=== PATIENT | female | born 1945 | race Caucasian/White ===

== ENCOUNTER → 2017-05-31 | Outpatient (CLI) | payer OTHER ==
[~2017-05-31] MED LIST: ALLEGRA-D PO; ASPI-1197 PO; ATOR40TA71 PO; CHOL200074 PO; LEVO137T2 PO; LEVO137T24 PO; LEVO150T11 PO; METO50TA18 PO; METOPROLOL; OLME1TAB11 PO; PANT40TA25 PO
== END | disposition home or self-care (01) ==
LOC: RAH 13:23
DX: N63.20 Unspecified lump in the left breast, unspecified quadrant (principal); Z98.82 Breast implant status
CPT/HCPCS: 76641

== ENCOUNTER 2017-07-24 03:02 | Emergency (ER) | payer OTHER ==
[~2017-07-24 03:02] MED LIST changes: -ASPI-1197 PO; -ATOR40TA71 PO; -LEVO137T2 PO; -LEVO150T11 PO; -METO50TA18 PO; -PANT40TA25 PO
[2017-07-24 03:22] LABS: BASOPHILS % (AUTO) 0.6 % (0.0-5.0); EOSINOPHILS % (AUTO) 2.2 % (0.0-8.0); HEMATOCRIT 42.9 % (36-48); LYMPHOCYTES % (AUTO) 49.8 % (21.0-51.0); MEAN CORPUSCULAR HEMOGLOBIN 29.5 pg (27.0-33.0); MEAN CORPUSCULAR HGB CONC 34.3 g/dL (32.0-36.0); MEAN CORPUSCULAR VOLUME 85.9 fL (79-99); MONOCYTES % (AUTO) 8.2 % (3.0-13.0); NEUTROPHILS % (AUTO) 39.2 % (40.0-77.0); NUCLEATED RED BLOOD CELLS 0.1 % (0.0-0.19); PLATELET COUNT (AUTO) 214 K/uL (130-400); RED BLOOD CELL COUNT(AUTO) 4.99 MIL/uL (4.00-5.50); RED CELL DISTRIBUTION WIDTH 12.4 % (11.0-15.5); WHITE BLOOD COUNT (AUTO) 4.6 K/uL (4.8-10.8)
[2017-07-24 03:32] LABS: CREATININE 0.7 mg/dL (0.5-1.5); POTASSIUM 3.3 mmol/L (3.5-5.1)
[2017-07-24 03:39] LABS: INR 0.92 (0.85-1.15); PARTIAL THROMBOPLASTIN TIME 27.3 SEC (26.3-35.5); PROTHROMBIN TIME 9.7 SEC (9.6-11.6)
[2017-07-24 03:51] LABS: ALBUMIN 3.7 g/dL (3.5-5.0); BILIRUBIN,TOTAL 0.2 mg/dL (0.2-1.0); CREATINE KINASE MB 1.8 ng/mL (0.5-3.6); TOTAL PROTEIN, SERUM 7.5 g/dL (6.0-8.3)
== END 2017-07-24 06:46 | disposition home or self-care (01) ==
LOC: EDH 03:02
DX: R07.89 Other chest pain (principal); R00.2 Palpitations; E03.9 Hypothyroidism, unspecified; I10 Essential (primary) hypertension; I48.91 Unspecified atrial fibrillation; Z90.10 Acquired absence of unspecified breast and nipple; Z79.899 Other long term (current) drug therapy
CPT/HCPCS: 36415; 71045; 80053; 82550; 82553; 83874; 84443; 84484; 85025; 85378; 85610; 85730; 93005; 94761

== ENCOUNTER → 2017-08-15 | Outpatient (CLI) | payer OTHER ==
[~2017-08-15] MED LIST changes: +ASPI-1197 PO; +ATOR40TA71 PO; +LEVO137T2 PO; +LEVO150T11 PO; +METO50TA18 PO; +PANT40TA25 PO; +REGADENOSON 0.4 MG/5 ML PF SYG IVP SCH
== END | disposition home or self-care (01) ==
LOC: SHCH 10:39
PROVIDERS: ATTEND Internal Medicine Cardiovascular Disease
DX: I25.10 Atherosclerotic heart disease of native coronary artery without angina pectoris (principal); R06.02 Shortness of breath
CPT/HCPCS: 78452; 93017; 96374; A9500 ×2; J2785

== ENCOUNTER → 2017-08-23 | Outpatient (CLI) | payer OTHER ==
[~2017-08-23] MED LIST changes: -REGADENOSON 0.4 MG/5 ML PF SYG IVP SCH
== END | disposition home or self-care (01) ==
LOC: SHCH 14:55
PROVIDERS: ATTEND Internal Medicine Cardiovascular Disease
DX: I35.0 Nonrheumatic aortic (valve) stenosis (principal); I51.7 Cardiomegaly
CPT/HCPCS: 93306

== ENCOUNTER 2017-09-03 04:07 | Inpatient (IN) | payer OTHER ==
[~2017-09-03] VITALS: Ht 160 cm; Wt 86.9 kg
[~2017-09-03 04:07] MED LIST changes: -ASPI-1197 PO; -ATOR40TA71 PO; -LEVO137T2 PO; -LEVO150T11 PO; -METO50TA18 PO; -PANT40TA25 PO
[2017-09-03 04:49] LABS: CREATININE 0.5 mg/dL (0.5-1.5); POTASSIUM 3.1 mmol/L (3.5-5.1)
[2017-09-03 04:56] LABS: ALBUMIN 3.3 g/dL (3.5-5.0); BILIRUBIN,TOTAL 0.3 mg/dL (0.2-1.0); TOTAL PROTEIN, SERUM 6.6 g/dL (6.0-8.3)
[2017-09-03 04:58] LABS: BASOPHILS % (AUTO) 1.1 % (0.0-5.0); EOSINOPHILS % (AUTO) 2.4 % (0.0-8.0); HEMATOCRIT 37.2 % (36-48); LYMPHOCYTES % (AUTO) 38.9 % (21.0-51.0); MEAN CORPUSCULAR HEMOGLOBIN 29.8 pg (27.0-33.0); MEAN CORPUSCULAR HGB CONC 34.8 g/dL (32.0-36.0); MEAN CORPUSCULAR VOLUME 85.6 fL (79-99); MONOCYTES % (AUTO) 9.8 % (3.0-13.0); NEUTROPHILS % (AUTO) 47.8 % (40.0-77.0); NUCLEATED RED BLOOD CELLS 0.1 % (0.0-0.19); PLATELET COUNT (AUTO) 213 K/uL (130-400); RED BLOOD CELL COUNT(AUTO) 4.35 MIL/uL (4.00-5.50); RED CELL DISTRIBUTION WIDTH 12.6 % (11.0-15.5); WHITE BLOOD COUNT (AUTO) 4.3 K/uL (4.8-10.8)
[2017-09-03 05:13] LABS: INR 0.95 (0.85-1.15); PARTIAL THROMBOPLASTIN TIME 27.2 SEC (26.3-35.5)
[2017-09-03] MEDS ORDERED: ASPIRIN 81MG TAB.CHEW ONE (06:24)
[2017-09-03] MEDS ORDERED: SODIUM CHLORIDE 0.9% 10 ML VIAL IVP PRN (07:00)
[2017-09-03] MEDS ORDERED: NITROGLYCERIN 1GM/1 INCH PACKET TD SCH (07:00)
[2017-09-03] MEDS ORDERED: METO50TA18 PO (07:41)
[2017-09-03 07:45] VITALS: BP 134/57
[2017-09-03] MEDS ORDERED: ASPIRIN 325MG EC TAB 325 MG TABLET.DR PO SCH (09:00)
[2017-09-03] MEDS ORDERED: ATOR40TA71 PO (10:05)
[2017-09-03] MEDS ORDERED: LEVO137T2 PO (10:05)
[2017-09-03] MEDS ORDERED: ASPI-1197 PO (10:05)
[2017-09-03] MEDS ORDERED: LEVO150T11 PO (10:05)
[2017-09-03] MEDS ORDERED: LEVOTHYROXINE SODIUM 137 MCG PO SCH (10:15)
[2017-09-03 10:59] LABS: CREATINE KINASE MB 2.3 ng/mL (0.5-3.6); CREATINE KINASE, TOTAL 70 U/L (21-232); MYOGLOBIN 40 ng/mL (10-92); TROPONIN I < 0.04 ng/mL (0.00-0.06)
[2017-09-03 11:10] VITALS: BP 125/55
[2017-09-03] MEDS: NITROGLYCERIN 1GM/1 INCH PACKET TD SCH ×2 (11:19→18:25)
[2017-09-03 16:26] VITALS: BP 127/61
[2017-09-03 16:36] LABS: CREATINE KINASE MB 1.7 ng/mL (0.5-3.6); CREATINE KINASE, TOTAL 68 U/L (21-232); MYOGLOBIN 31 ng/mL (10-92); TROPONIN I < 0.04 ng/mL (0.00-0.06)
[2017-09-03 19:55] VITALS: BP 119/49
[2017-09-03] MEDS: ATORVASTATIN CALCIUM 40 MG TABLET PO SCH ×2 (20:16→20:20)
[2017-09-04] VITALS (11 sets, daily range): BP systolic 119–143; BP diastolic 57–75
[2017-09-04] MEDS: NITROGLYCERIN 1GM/1 INCH PACKET TD SCH ×3 (00:02→12:24)
[2017-09-04] MEDS ORDERED: LEVOTHYROXINE 25 MCG TABLET PO SCH (06:30)
[2017-09-04] MEDS ORDERED: LEVOTHYROXINE 150 MCG TABLET PO SCH (06:30)
[2017-09-04] MEDS ORDERED: LEVOTHYROXINE 112 MCG TABLET PO SCH (06:30)
[2017-09-04] MEDS ORDERED: LOSARTAN/HYDROCHLOROTHIAZIDE 50-12.5MG TABLET PO SCH (09:00)
[2017-09-04] MEDS ORDERED: METOPROLOL TARTRATE 50 MG TAB PO SCH (09:00)
[2017-09-04] MEDS ORDERED: PSEUDOEPHEDRINE PO SCH (09:00)
[2017-09-04] MEDS ORDERED: CHOLECALCIFEROL 2000 UNIT PO SCH (09:00)
[2017-09-04] MEDS ORDERED: FEXOFENADINE PO SCH (09:00)
[2017-09-04] MEDS ORDERED: NITROGLYCERIN 5 MG/ML 10 ML VIAL IV ONE (12:32)
[2017-09-04] MEDS ORDERED: IOPAMIDOL-370 100 ML VIAL IV ONE ×2 (12:32)
[2017-09-04] MEDS ORDERED: ISOVUE-370 50ML VIAL IV ONE (12:32)
[2017-09-04] MEDS ORDERED: LIDOCAINE HCL 2% 20ML ONE (12:32)
[2017-09-04] MEDS ORDERED: MIDAZOLAM HCL 1 MG/ML 2ML VIAL ONE (13:10)
[2017-09-04] MEDS ORDERED: MORPHINE SULFATE 4 MG/1ML SYG ONE (13:11)
[2017-09-04] MEDS ORDERED: SODIUM CHLORIDE 0.9% 1000ML 1,000 ML IV SCH (13:28)
[2017-09-04] MEDS ORDERED: PANT40TA25 PO (13:32)
[2017-09-09] MEDS ORDERED: LEVOTHYROXINE 150 MCG TABLET PO SCH (06:30)
== END 2017-09-04 18:45 | disposition home or self-care (01) | DRG 287 ==
LOC: EDH 04:07 → EDHIP 06:26 → 2AH 07:40
PROVIDERS: ADMIT Internal Medicine Hematology & Oncology; ATTEND Internal Medicine Hematology & Oncology
PROC: 4A023N7 Measurement of Cardiac Sampling and Pressure, Left Heart, Percutaneous Approach (ICD-10-PCS; principal; 2017-09-04)
PROC: B2111ZZ Fluoroscopy of Multiple Coronary Arteries using Low Osmolar Contrast (ICD-10-PCS; 2017-09-04)
PROC: B2151ZZ Fluoroscopy of Left Heart using Low Osmolar Contrast (ICD-10-PCS; 2017-09-04)
DX: I25.110 Atherosclerotic heart disease of native coronary artery with unstable angina pectoris (principal); I35.0 Nonrheumatic aortic (valve) stenosis; I10 Essential (primary) hypertension; E78.5 Hyperlipidemia, unspecified; I48.0 Paroxysmal atrial fibrillation; F17.210 Nicotine dependence, cigarettes, uncomplicated; E89.0 Postprocedural hypothyroidism; I25.2 Old myocardial infarction; Z79.82 Long term (current) use of aspirin; Z79.899 Other long term (current) drug therapy; Z85.3 Personal history of malignant neoplasm of breast; Z90.13 Acquired absence of bilateral breasts and nipples; Z90.710 Acquired absence of both cervix and uterus
CPT/HCPCS: 36415; 71045; 80053; 82550; 82553; 83690; 83874; 84132; 84484; 85025; 85610; 85730; 93005; 93458; 99156; 99157; C1760; C1894; J1644; J2250; J2270; J3490; Q9967

== ENCOUNTER 2019-01-11 13:06 | Observation (INO) | payer OTHER ==
[~2019-01-11] VITALS: Ht 160 cm; Wt 84.0 kg
[~2019-01-11 13:06] MED LIST changes: +ATOR40TA71 PO; +LEVO137T2 PO; -LEVO137T24 PO; +LEVO150T11 PO; +METO50TA18 PO; -METOPROLOL; +PANT40TA25 PO
[2019-01-11] MEDS ORDERED: SODIUM CHLORIDE 0.9% 10 ML VIAL IVP PRN (13:30)
[2019-01-11 14:06] LABS: APPEARANCE,URINE Cloudy (CLEAR); BILIRUBIN,URINE Negative (NEGATIVE); COLOR,URINE Yellow (YELLOW); GLUCOSE, URINE (UA) Negative (NEGATIVE); KETONES,URINE Negative (NEGATIVE); LEUKOCYTE ESTERASE ,URINE Trace (NEGATIVE); NITRATE,URINE Negative (NEGATIVE); OCCULT BLOOD,URINE Negative (NEGATIVE); PROTEIN,URINE Negative (NEGATIVE); UROBILINOGEN,URINE 0.2 mg/dL (0.2-1.0)
[2019-01-11 14:20] LABS: BACTERIA,URINE Moderate /HPF (None Seen); MUCUS,URINE Moderate LPF (None Seen)
[2019-01-11 14:44] LABS: BASOPHILS % (AUTO) 0.7 % (0.0-5.0); HEMATOCRIT 39.6 % (36-48); LYMPHOCYTES % (AUTO) 34.6 % (21.0-51.0); MEAN CORPUSCULAR HEMOGLOBIN 29.9 pg (27.0-33.0); MEAN CORPUSCULAR HGB CONC 34.2 g/dL (32.0-36.0); MEAN CORPUSCULAR VOLUME 87.5 fL (79-99); MONOCYTES % (AUTO) 8.1 % (3.0-13.0); NEUTROPHILS % (AUTO) 55.6 % (40.0-77.0); NUCLEATED RED BLOOD CELLS 0.1 % (0.0-0.19); PLATELET COUNT (AUTO) 206 K/uL (130-400); RED BLOOD CELL COUNT(AUTO) 4.52 MIL/uL (4.00-5.50); WHITE BLOOD COUNT (AUTO) 4.9 K/uL (4.8-10.8)
[2019-01-11 14:59] LABS: CREATININE 0.8 mg/dL (0.5-1.5); POTASSIUM 3.9 mmol/L (3.5-5.1)
[2019-01-11 15:01] LABS: INR 1.29 (0.85-1.15); PROTHROMBIN TIME 13.4 SEC (9.6-11.6)
[2019-01-11 15:04] LABS: ALBUMIN 3.7 g/dL (3.5-5.0); BILIRUBIN,TOTAL 0.5 mg/dL (0.2-1.0); TOTAL PROTEIN, SERUM 7.1 g/dL (6.0-8.3)
[2019-01-11] MEDS ORDERED: PANTOPRAZOLE SODIUM 40 MG TABLET.DR PO ONE (16:44)
[2019-01-11 17:30] VITALS: BP_SYST 132; BP_SYST 32; BP_DIAS 50
[2019-01-11] MEDS ORDERED: RIVA20TA PO (17:52)
[2019-01-11] MEDS ORDERED: CALC-960 PO (17:52)
[2019-01-11] MEDS ORDERED: METO50TA9 PO (17:52)
[2019-01-11] MEDS ORDERED: LEVO150T11 PO (17:52)
[2019-01-11 19:27] VITALS: BP 131/68
[2019-01-11 23:53] VITALS: BP 138/59
[2019-01-12] VITALS (10 sets, daily range): BP systolic 136–159; BP diastolic 61–90
--- NOTE | 2019-01-12 00:30 | NUR ---
HOSPITALIST PAGED PAGED HOSPITALIST SEWING MACHINE OPERATOR COURTESY SINCE PRIMARY HAS NOT SEEN PATIENT SINCE SHE ARRIVED AND PATIENT HAS NO ORDERS
--- NOTE | 2019-01-12 01:30 | NUR ---
HOSPITALIST REPAGED HOSPITALIST HASMUKH MCBRIDE REPAGED AWAITING CALL BACK
--- NOTE | 2019-01-12 03:30 | NUR ---
NOTIFIED HOSPITALIST NOTIFIED HOSPITALIST PRINTED CIRCUIT LAYOUT TAPER IN PERSON THAT THE PATIENT HAD NOT BEEN SEEN BY PRIMARY TEAM SINCE HER ARRIVAL AT 5PM AND THAT SHE DID NOT HAVE ANY ORDERS . SHE VERBALIZED UNDERSTANDING AND STATED SHE WOULD TAKE A LOOK
--- NOTE | 2019-01-12 07:35 | NUR ---
ASSESSMENT ENCOUNTERED PT A&OX3, CALM COOPERATIVE AND DOES NOT APPEAR TO BE IN ANY DISTRESS NOR ANY NEURO DEFICITS PRESENT. PT DENIES PAIN, SOB, NAUSEA. PT IS AMBULATORY, GAIT STEADY AND STRONG WITH STAND BY ASSIST. TELEMONITOR DISPLAYS NSR. PT IS NPO FOR PENDING PACEMAKER PLACEMENT. CALL LIGHT WITHIN REACH, FAMILY AT BEDSIDE.
[2019-01-12] MEDS ORDERED: POTASSIUM CHLORIDE 10% ELIXIR 20 MEQ/15 ML UDCUP PO PRN (08:00)
[2019-01-12] MEDS ORDERED: POTASSIUM CHLORIDE 20 MEQ ERTAB PO PRN (08:00)
[2019-01-12] MEDS ORDERED: LIDOCAINE HCL-MPF 1% 2ML VIAL IV PRN (08:00)
[2019-01-12] MEDS ORDERED: POTASSIUM CHLORIDE 20MEQ/100ML 100 ML IV PRN (08:00)
[2019-01-12] MEDS ORDERED: CLINDAMYCIN 600 MG/D5% WATER 50 ML IV PRN (09:00)
[2019-01-12] MEDS ORDERED: LOSARTAN 100 MG TABLET PO SCH (09:00)
[2019-01-12] MEDS ORDERED: HYDROCHLOROTHIAZIDE 25 MG TABLET PO SCH (09:00)
[2019-01-12] MEDS ORDERED: CLINDAMYCIN 600 MG/D5% WATER 100 ML IV ONE (13:13)
[2019-01-12] MEDS ORDERED: FENTANYL CITRATE PF 50 MCG/1 ML 2ML VIAL ONE ×2 (13:13→15:08)
[2019-01-12] MEDS ORDERED: LIDOCAINE HCL 1% MDV 50ML VIAL ONE (13:13)
[2019-01-12] MEDS ORDERED: MIDAZOLAM HCL 1 MG/ML 2ML VIAL ONE ×2 (13:13→15:08)
[2019-01-12] MEDS ORDERED: BUPIVACAINE/PF 0.25% 30ML VIAL IJ ONE (13:13)
--- NOTE | 2019-01-12 16:10 | NUR ---
POST PROCEDURE RECEIVED PT FROM COMMUNITY DIRECTOR, IN SEMI MURRAY'S POSITION, A&OX3, CALM COOPERATIVE AND DOES NOT APPEAR TO BE IN ANY DISTRESS NOR ANY NEURO DEFICITS PRESENT. PT DENIES SOB, NAUSEA. LEFT SHOULDER DRESSING DRY, INTACT AND SECURE WITH ARM SLING. PULSES AND SEAM RUBBER STRENGTH STRONG TO ALL EXTREMITIES. PT ON BEDREST, CALL LIGHT WITHIN REACH, FAMILY AT BEDSIDE.
[2019-01-12] MEDS ORDERED: ACETAMINOPHEN 325 MG TAB ONE (16:24)
[2019-01-12] MEDS ORDERED: ACETAMINOPHEN 325 MG TAB PO PRN ×2 (16:30)
--- NOTE | 2019-01-12 19:58 | NUR ---
DISMISSED TO HOME VIA WHEELCHAIR ACCOMPANIED BY . DISCHARGE INSTRUCTIONS GIVEN TO PATIENT AND SPOUSE BY BO HAIDER. IV'S DC'D AND TELEY PACK REMOVED.
[2019-01-12] MEDS ORDERED: ATORVASTATIN CALCIUM 40 MG TABLET PO SCH (21:00)
[2019-01-13] MEDS ORDERED: LEVOTHYROXINE 150 MCG TABLET PO SCH (06:30)
[2019-01-13] MEDS ORDERED: PANTOPRAZOLE SODIUM 40 MG TABLET.DR PO SCH (07:30)
== END 2019-01-12 20:24 | disposition home or self-care (01) ==
LOC: EDH 13:06 → INTOOBSV 13:07 → EDHIP 13:07 → 2AH 17:20
PROVIDERS: ADMIT Internal Medicine; ATTEND Internal Medicine
DX: I46.9 Cardiac arrest, cause unspecified (principal); I48.0 Paroxysmal atrial fibrillation; D68.59 Other primary thrombophilia; I51.7 Cardiomegaly; E89.0 Postprocedural hypothyroidism; K22.70 Barrett's esophagus without dysplasia; R00.1 Bradycardia, unspecified; R94.31 Abnormal electrocardiogram [ECG] [EKG]; Z85.3 Personal history of malignant neoplasm of breast; Z90.13 Acquired absence of bilateral breasts and nipples; Z90.710 Acquired absence of both cervix and uterus; Z98.1 Arthrodesis status; Z95.818 Presence of other cardiac implants and grafts; Z79.01 Long term (current) use of anticoagulants; Z79.899 Other long term (current) drug therapy; Z88.8 Allergy status to other drugs, medicaments and biological substances
CPT/HCPCS: 33208; 36415; 71045; 71046; 80053; 81001; 85025; 85610; 85730; 93005; 99284; C1785; C1898 ×2; G0378 ×32; J2250 ×2; J3010 ×2; J3490 ×4; 99156; 99157

== ENCOUNTER 2019-01-13 14:56 | Emergency (ER) | payer OTHER ==
[~2019-01-13 14:56] MED LIST changes: +CALC-960 PO; -LEVO137T2 PO; -METO50TA18 PO; +METO50TA9 PO; +RIVA20TA PO
[2019-01-13] MEDS ORDERED: NEOMY SULF/BACITRA/POLYMYXIN B 1 EACH PACKET TP ONE (15:55)
== END 2019-01-13 16:42 | disposition home or self-care (01) ==
LOC: EDH 14:56
DX: I97.638 Postprocedural hematoma of a circulatory system organ or structure following other circulatory system procedure (principal); I48.91 Unspecified atrial fibrillation; E78.5 Hyperlipidemia, unspecified; I10 Essential (primary) hypertension; E07.9 Disorder of thyroid, unspecified; Z95.0 Presence of cardiac pacemaker; Z72.0 Tobacco use; Y83.8 Other surgical procedures as the cause of abnormal reaction of the patient, or of later complication, without mention of misadventure at the time of the procedure; Y82.8 Other medical devices associated with adverse incidents; Y92.89 Other specified places as the place of occurrence of the external cause
CPT/HCPCS: 99281

== ENCOUNTER → 2024-04-16 | Outpatient (CLI) | payer MEDICARE ==
[~2024-04-16] MED LIST changes: +OLME-40 PO; -OLME1TAB11 PO; -PANT40TA25 PO; +PANT40TA54 PO
== END | disposition home or self-care (01) ==
LOC: SHCH 07:44
PROVIDERS: ATTEND Student in an Organized Health Care Education/Training Program
DX: I71.40 Abdominal aortic aneurysm, without rupture, unspecified (principal); I73.9 Peripheral vascular disease, unspecified
CPT/HCPCS: 93925; 93978

== ENCOUNTER → 2024-04-26 | Outpatient (CLI) | payer MEDICARE ==
[2024-04-26 12:42] LABS: CHOLESTEROL 242 mg/dL (<200); HDL CHOLESTEROL 107 mg/dL (35-85); LDL DIRECT 120 mg/dL (0-99); TRIGLYCERIDES 99 mg/dL (30-200)
== END | disposition home or self-care (01) ==
LOC: LAB 08:10
PROVIDERS: ATTEND Student in an Organized Health Care Education/Training Program
DX: Z13.6 Encounter for screening for cardiovascular disorders (principal); I10 Essential (primary) hypertension; I48.0 Paroxysmal atrial fibrillation; D68.59 Other primary thrombophilia; E78.2 Mixed hyperlipidemia; M79.605 Pain in left leg; R00.2 Palpitations; Z95.0 Presence of cardiac pacemaker
CPT/HCPCS: 36415; 80061

== ENCOUNTER 2024-06-07 15:17 | Emergency (ER) | payer MEDICARE ==
[~2024-06-07] VITALS: Ht 162.6 cm; Wt 90.7 kg
[2024-06-07 15:23] VITALS: BP 143/66; PULSE 65; RESP 16; TEMP 98.1
--- NOTE | 2024-06-07 16:02 | HMCIMG ---
Exam Type: CT cervical spine without contrast Clinical Information: fall Comparison: None Technique: Spiral axial images were performed from the base of the skull down to the thoracic vertebral bodies. Both sagittal and coronal reconstructions were performed. CT Dose Index (CTDI): 12.85 mGy Dose Length Product (DLP): 282.6 total Findings: There is straightening of the spine consistent with spasm. There are no fractures. No facet hypertrophy. The prevertebral soft tissues are normal. Status post anterior fusion and disc fusion at C6-7. IMPRESSION: Cervical spasm. No fractures. This study was performed using dose reduction techniques to include automated exposure control and/or adjustment of the mA and/or kV according to patient size.
--- NOTE | 2024-06-07 16:04 | HMCIMG ---
CT MAXILLOFACIAL W/O CONTRAST Indication: fall Technique: Multiple thin section axial images were performed through the face and paranasal sinuses. Coronal reconstructions were performed in soft tissue and bone windows, as well as sagittal reconstructions. CT Dose Index (CTDI): 22.11 mGy Dose Length Product (DLP): 450.8 total mGy Findings: Paranasal sinuses are unremarkable. Comminuted nasal bridge and nasal bone fractures seen. Visualized soft tissues are unremarkable. Visualized intracranial contents are unremarkable. Impression: Nasal fractures. This study was performed using dose reduction techniques to include automated exposure control and/or adjustment of the mA and/or kV according to patient size.
--- NOTE | 2024-06-07 16:09 | HMCIMG ---
Exam Type: CT HEAD/BRAIN W/O CONTRAST Clinical Information: fall Comparison: None CT Dose Index (CTDI): 57.33 mGy Dose Length Product (DLP): 956.79 total mGy-cm Findings: The examination shows atrophy. There is low attenuation throughout the periventricular white matter locations, consistent with chronic small vessel ischemic changes. No acute intra- or extra-axial fluid collections are seen. There is no evidence of acute or chronic hemorrhage. There is no mass effect or shift of midline structures. There are no areas to suggest acute infarct. The skull windows show no significant abnormalities. IMPRESSION: 1. ATROPHY AND CHRONIC SMALL VESSEL ISCHEMIC CHANGES. This study was performed using dose reduction techniques to include automated exposure control and/or adjustment of the mA and/or kV according to patient size.
--- NOTE | 2024-06-07 16:11 | NUR ---
C COLLAR REMOVED PER ORDER
[2024-06-07] MEDS: teTANUS/diphthERIA TOXOID [ADULT] 0.5 ML VIAL IM ONE ×2 (16:18→16:19)
--- NOTE | 2024-06-07 16:43 | ERN ---
General Chief Complaint: Head Injury Stated Complaint: INJURY DUE TO FALL Time Seen by MD: 15:21 Time Seen by Midlevel: 15:21 Source: patient History of Present Illness Initial Comments PATIENT IS A 78-YEAR-OLD FEMALE PRESENTING TO THE EMERGENCY DEPARTMENT FOR EVALUATION OF A HEAD INJURY. THE PATIENT REPORTS SUSTAINING A MECHANICAL GROUND LEVEL FALL TODAY. SHE TRIPPED AND FELL FORWARD HITTING HER FACE.. SHE REPORTS POSITIVE LOSS OF CONSCIOUSNESS. SHE IS CURRENTLY TAKING XARELTO. SHE REPORTS TAKING 800 MG OF MOTRIN 2 HOURS PRIOR TO ARRIVAL. Allergies: Coded Allergies: No Known Drug Allergies (Verified Allergy, Unknown, 08/29/16) Home Meds Active Scripts Pantoprazole Sodium (Pantoprazole Sodium) 40 Mg Tablet.dr, 40 MG PO ACBKFST, #30 TAB Prov:BUTCH CARROLL MD 09/04/17 Reported Medications Calcium Carb & Cit/Vitamin D3 (Citracal + D ER Tablet) 1 Each Tablet.er, 1 EACH PO DAILY, TAB 01/11/19 Rivaroxaban (Xarelto) 20 Mg Tablet, 20 MG PO DAILY, TAB 01/11/19 Metoprolol Succinate (Toprol Xl) 50 Mg Tab.er.24h, 50 MG PO DAILY, TAB 01/11/19 Levothyroxine Sodium (Levothyroxine Sodium) 150 Mcg Tablet, 150 MCG PO 0630, TAB 01/11/19 Atorvastatin Calcium (Atorvastatin Calcium) 40 Mg Tablet, 40 MG PO HS, TAB 09/03/17 [Irene-D] No Conflict Check, 180-240 MG PO DAILY 08/29/16 Olmesartan/Hydrochlorothiazide (Benicar Hct 40-25 mg Tablet) 1 Each Tablet, 1 EACH PO DAILY, TAB 08/29/16 Cholecalciferol (Vitamin D3) (Vitamin D-3) 2,000 Unit Capsule, 2000 UNIT PO DAILY, CAP 08/29/16 Past Medical History Past Medical History: Heart Disease, Hypertension Medical History Other: CHRONIC KNEE PAIN Past Surgical History: Pacer/AICD ROS Dictation CONSTITUTIONAL: Negative except for HPI HEAD/FACE: Negative except for HPI EENT: Negative except for HPI RESPIRATORY: Negative except for HPI GASTROINTESTINAL/ABDOMINAL: Negative except for HPI GENITOURINARY: Negative except for HPI MUSCULOSKELETAL: Negative except for HPI INTEGUMENTARY: Negative except for HPI NEUROLOGICAL/PSYCH: Negative except for HPI HEMATOLOGIC/LYMPHATIC: Negative except for HPI All Systems Negative, Except as noted above. 13 point review of systems assessed and all negative except for above. Physical Exam Physical Exam Dictation Vital Signs reviewed General Appearance: Alert, oriented x 3, no acute distress, well developed, nourished. Head and Face: BRUISING AND SWELLING TO THE NASAL BRIDGE, NO SEPTAL HEMATOMA, NO NASAL DEVIATION Eyes: PERRL, pink conjunctivas, eyelid no trauma, anterior chamber with arcus senilis. Ears: Pinnas intact and no signs of trauma or erythema ear canals clear and no discharge TM no erythema Nose: No discharge, no bleeding. Oropharynx: Mouth normal, tongue pink, pharynx clear,no erythema, tonsils no exudates, no abscesses noted, mucous membrane moist Neck: Supple, non-tender, no thyromegaly, no masses, no JVD, no bruits Breast:Deferred Chest:No tenderness, no crepitus, no paradoxical movement, no retractions Lungs:Clear, well-ventilated, symmetric, no rales, no wheezing, no rhonchi, no stridor, good breath sounds bilaterally Heart: Regular rate, regular rhythm, no murmur, no gallops Vascular: no peripheral edema, Abdomen: Soft, positive bowel sounds, nondistended, no guarding, nontender, no rebound, no masses no hepatomegaly, no splenomegaly, no Ortega's sign, no hernias. Rectal: Deferred Genital: Deferred Neurological: Normal speech, motor function intact, sensory function intact Musculoskeletal: Neck nontender, full range of motion, back nontender, full range of motion, Extremities: nontender, full range of motion Skin: Color pink, dry, no turgor, no rash, no lacerations, no abrasions, no contusions. Lymphatic: Deferred MDM MDM: 78-YEAR-OLD FEMALE ON XARELTO PRESENTING TO THE ER FOLLOWING A MECHANICAL GROUND LEVEL FALL. SHE DOES REPORT POSITIVE HEAD INJURY. ON EXAM SHE HAS SWELLING AND BRUISING OVER THE NASAL BRIDGE HOWEVER THERE WAS NO SEPTAL HEMATOMA OR NASAL DEVIATION. THERE IS SOME BRUISING TO BILATERAL EYES. A CT SCAN OF THE HEAD, NECK, AND MAXILLOFACIAL WAS OBTAINED WHICH REVEALS NASAL BONE FRACTURE BUT NO EVIDENCE OF INTRACRANIAL INJURY OR CERVICAL SPINE INJURY. PATIENT WAS OBSERVED IN THE ER FOR SEVERAL HOURS AND HAS REMAINED STABLE. IMAGING IS NEGATIVE. PATIENT WILL BE DISCHARGED HOME Differential diagnosis: FRACTURE, CONTUSION, DISLOCATION There are no social concerns with this patient. Prescription drug management Prescriptions will include: NONE Medical management and examination interpretation discussions were had by me with other qualified healthcare professionals as indicated for the patient's care. ED Course Orders Procedure Category Date Status Time Ct Head/Brain W/O CT 06/07/24 Resulted Contrast 15:26 Ct Maxillofacial W/O CT 06/07/24 Resulted Contrast 15:26 Ct Cervical Spine W/O CT 06/07/24 Resulted Contrast 15:26 Tetanus,Diphtheria PHA 06/07/24 Complete Tox [Adult] (Diphther 16:30 Remove Pt Off CPOE 06/07/24 Transmitted C-Collar. (Er) 16:10 Tetanus,Diphtheria PHA 06/07/24 Complete Tox [Adult] (Diphther 16:13 Vital Signs Date Time Temp Pulse Resp B/P (MAP) Pulse Ox O2 Delivery O2 Flow Rate FiO2 06/07/24 15:23 98.1 65 16 143/66 96 Room Air 0 [place] [id number] [id number] IMAGING REPORT Signed PATIENT: AMARJIT FINN MR#: [id number] : 1945 SEX: F AGE: 78 LOCATION: [facility] ORDER 1526 STATUS: [facility] REPORT#: [id number] SERVICE 1526 REASON: fall ORDERING PHYSICIAN: LOLIS FUENTES DO PROCEDURE: [facility] WO - CT MAXILLOFACIAL W/O CONTRAST CT MAXILLOFACIAL W/O CONTRAST Indication: fall Technique: Multiple thin section axial images were performed through the face and paranasal sinuses. Coronal reconstructions were performed in soft tissue and bone windows, as well as sagittal reconstructions. CT Dose Index (CTDI): 22.11 mGy Dose Length Product (DLP): 450.8 total mGy Findings: Paranasal sinuses are unremarkable. Comminuted nasal bridge and nasal bone fractures seen. Visualized soft tissues are unremarkable. Visualized intracranial contents are unremarkable. Impression: Nasal fractures. This study was performed using dose reduction techniques to include automated exposure control and/or adjustment of the mA and/or kV according to patient size. DICTATED BY: SUZETTE PINEDA MD DATE: 06/07/24 1600 ELECTRONICALLY SIGNED BY: SUZETTE PINEDA MD DATE: 06/07/24 [address] [place] [id number] [id number] IMAGING REPORT Signed PATIENT: AMARJIT FINN MR#: [id number] : 1945 SEX: F AGE: 78 LOCATION: [facility] ORDER 152 STATUS: REG ER REPORT#: [id number] SERVICE 152 REASON: fall ORDERING PHYSICIAN: LOLIS FUENTES DO PROCEDURE: HEAD WO - CT HEAD/BRAIN W/O CONTRAST Exam Type: CT HEAD/BRAIN W/O CONTRAST Clinical Information: fall Comparison: None CT Dose Index (CTDI): 57.33 mGy Dose Length Product (DLP): 956.79 total mGy-cm Findings: The examination shows atrophy. There is low attenuation throughout the periventricular white matter locations, consistent with chronic small vessel ischemic changes. No acute intra- or extra-axial fluid collections are seen. There is no evidence of acute or chronic hemorrhage. There is no mass effect or shift of midline structures. There are no areas to suggest acute infarct. The skull windows show no significant abnormalities. IMPRESSION: 1. ATROPHY AND CHRONIC SMALL VESSEL ISCHEMIC CHANGES. This study was performed using dose reduction techniques to include automated exposure control and/or adjustment of the mA and/or kV according to patient size. DICTATED BY: SUZETTE PINEDA MD DATE: 06/07/241604 ELECTRONICALLY SIGNED BY: SUZETTE PINEDA MD DATE: 06/07/24 [address] [place] [id number] [id number] IMAGING REPORT Signed PATIENT: AMARJIT FINN MR#: [id number] : 1945 SEX: F AGE: 78 LOCATION: [facility] ORDER 152 STATUS: [facility] REPORT#: [id number] SERVICE 152 REASON: fall ORDERING PHYSICIAN: LOLIS FUENTES DO PROCEDURE: C SPIN WO - CT CERVICAL SPINE W/O CONTRAST Exam Type: CT cervical spine without contrast Clinical Information: fall Comparison: None Technique: Spiral axial images were performed from the base of the skull down to the thoracic vertebral bodies. Both sagittal and coronal reconstructions were performed. CT Dose Index (CTDI): 12.85 mGy Dose Length Product (DLP): 282.6 total Findings: There is straightening of the spine consistent with spasm. There are no fractures. No facet hypertrophy. The prevertebral soft tissues are normal. Status post anterior fusion and disc fusion at C6-7. IMPRESSION: Cervical spasm. No fractures. This study was performed using dose reduction techniques to include automated exposure control and/or adjustment of the mA and/or kV according to patient size. DICTATED BY: SUZETTE PINEDA MD DATE: 06/07/24 1558 ELECTRONICALLY SIGNED BY: SUZETTE PINEDA MD DATE: 06/07/24 1602 DX & DISP Disposition: Discharge Departure Impression: Primary Impression: Fall Additional Impression: Nasal bone fracture Condition: Stable Additional Instructions: Your CT scan of the head and neck did not show any acute injury. Your CT scan of the maxillofacial reveals a nasal fracture. There was no evidence of a septal hematoma. Please follow up with your primary care doctor for further evaluation. If you develop any new or worsening symptoms please report to the ER for further evaluation You may take Tylenol and Motrin as needed for pain. Referrals: MARV DANIELS Jr., MD (PCP) Time of Disposition: 16:40 I have reviewed the case, and I agree with, Diagnosis and Plan I performed the substantive portion of the visit. I have reviewed and personally made and approve the management plan that is documented in the note by myself or the YAZAN. I acknowledge for responsibility for the patient's management plan. WAYNE CHEUNG Jun 07, 2024 16:43 LOLIS FUENTES DO Jun 14, 2024 08:20
== END 2024-06-07 16:47 | disposition home or self-care (01) ==
LOC: EDH 15:17
DX: S02.2XXA Fracture of nasal bones, initial encounter for closed fracture (principal); S00.01XA Abrasion of scalp, initial encounter; I11.9 Hypertensive heart disease without heart failure; Z79.01 Long term (current) use of anticoagulants; Z79.899 Other long term (current) drug therapy; Z95.810 Presence of automatic (implantable) cardiac defibrillator; W18.39XA Other fall on same level, initial encounter; Y93.89 Activity, other specified; Y92.89 Other specified places as the place of occurrence of the external cause; Y99.8 Other external cause status
CPT/HCPCS: 70450; 70486; 72125; 90471; 90714; 99285